=== PATIENT | female | born 1960 | race Caucasian/White ===

== ENCOUNTER 2017-07-13 06:32 | Observation (INO) | payer OTHER ==
[2017-07-13] MEDS ORDERED: ATROPINE 1 MG/10 ML SYRINGE IV (07:00)
[2017-07-13] MEDS ORDERED: MEPERIDINE 25 MG INJ IV (07:00)
[2017-07-13] MEDS ORDERED: hydrALAzine 20 MG INJ IV (07:00)
[2017-07-13] MEDS ORDERED: HYDROmorphONE (0.2 MG/ML) 10ML SYG IV ×3 (07:00)
[2017-07-13] MEDS ORDERED: FENTAnyl 50 MCG/ML VIAL IV ×2 (07:00)
[2017-07-13] MEDS ORDERED: EPHEDrine SULFATE 50 MG/5 ML SYG IV (07:00)
[2017-07-13] MEDS ORDERED: ONDANSETRON 4 MG INJ IV ×2 (07:00→15:00)
[2017-07-13] MEDS ORDERED: OXYCODONE/ACETAMINOPHEN (5/325) TAB PO ×2 (07:00)
[2017-07-13] MEDS ORDERED: LABETALOL HCL 20MG INJ IV (07:00)
[2017-07-13] MEDS ORDERED: DIPHENHYDRAMINE 50 MG INJ IV (07:00)
[2017-07-13] MEDS ORDERED: MIDAZOLAM 1 MG/ML 2 ML INJ IV (07:00)
[2017-07-13] MEDS ORDERED: morphine (1 MG/ML) 10ML SYRINGE IV ×3 (07:00)
[2017-07-13] MEDS: SOD CHLORIDE 0.9% 1,000 ML IV (10:00)
[2017-07-13] MEDS: CEFAZOLIN 2 GM/50 ML (PMX) 50 ML IVPB (10:00)
[2017-07-13 10:07] LABS: ADD MAN DIFF? NO
[2017-07-13 10:11] LABS: WHITE BLOOD COUNT 7.4 10^3/ul (4.8-10.8)
[2017-07-13 10:11] LABS: BASOPHIL # 0.1 10^3/ul (0.0-0.1); BASOPHILS % 1.2 % (0.0-2.0); EOSINOPHILS # 0.3 10^3/ul (0.0-0.5); EOSINOPHILS % 4.6 % (0.0-7.0); HEMATOCRIT 45.7 % (37.0-47.0); HEMOGLOBIN 15.5 g/dl (12.0-16.0); LYMPHOCYTES # 2.5 10^3/ul (0.8-2.9); LYMPHOCYTES % 33.7 % (15.0-51.0); MEAN CORPUSCULAR HEMOGLOBIN 30.6 pg (29.0-33.0); MEAN CORPUSCULAR HGB CONC 33.9 g/dl (32.0-37.0); MEAN CORPUSCULAR VOLUME 90.3 fl (82.0-101.0); MEAN PLATELET VOLUME 11.8 fl (7.4-10.4); MONOCYTE # 0.7 10^3/ul (0.3-0.9); MONOCYTES % 9.1 % (0.0-11.0); NEUTROPHIL # 3.8 10^3/ul (1.6-7.5); NEUTROPHILS % 51.3 % (39.0-77.0); PLATELET COUNT 201 10^3/UL (140-415); RED BLOOD COUNT 5.06 10^6/ul (4.20-5.40); RED CELL DISTRIBUTION WIDTH 13.2 % (11.5-14.5)
[2017-07-13 10:30] LABS: ALANINE AMINOTRANSFERASE 32 IU/L (13-69); ALBUMIN 4.6 g/dl (3.3-4.9); ALBUMIN/GLOBULIN RATIO 1.39; ALKALINE PHOSPHATASE 100 IU/L (42-121); ANION GAP 17 (8-16); ASPARTATE AMINO TRANSFERASE 26 IU/L (15-46); BILIRUBIN,INDIRECT 0.9 mg/dl (0-1.1); BILIRUBIN,TOTAL 0.9 mg/dl (0.2-1.3); CARBON DIOXIDE 27 mmol/L (21-31); CHLORIDE 107 mmol/L (97-110); GLUCOSE 97 mg/dl (70-220); TOTAL PROTEIN 7.9 g/dl (6.1-8.1)
[2017-07-13 10:34] LABS: BLOOD UREA NITROGEN 16 mg/dl (7-20); CALCIUM 9.3 mg/dl (8.4-10.2); CREATININE 0.69 mg/dl (0.44-1.00); POTASSIUM 3.9 mmol/L (3.5-5.1); SODIUM 147 mmol/L (135-144)
[2017-07-13 10:53] LABS: INR 0.93; PROTIME 12.6 Sec (11.9-14.9)
[2017-07-13 10:54] LABS: PARTIAL THROMBOPLASTIN TIME 28.2 Sec (25.0-35.0)
[2017-07-13] MEDS ORDERED: PROPOFOL 20 ML (11:30)
[2017-07-13] MEDS ORDERED: NEOSTIGMINE 3 MG/3 ML SYRINGE (11:30)
[2017-07-13] MEDS ORDERED: LIDOCAINE 2% (SDV) 5 ML INJ (11:30)
[2017-07-13] MEDS ORDERED: GLYCOPYRROLATE 0.4 MG INJ (11:30)
[2017-07-13] MEDS ORDERED: ROCURONIUM 50 MG INJ (11:30)
[2017-07-13] MEDS ORDERED: FENTAnyl 50 MCG/ML VIAL (11:31)
[2017-07-13] MEDS ORDERED: MIDAZOLAM 1 MG/ML 2 ML INJ (11:31)
[2017-07-13] MEDS: ISOSULFAN BLUE 1% 5 ML INJ SC (11:40)
[2017-07-13] MEDS ORDERED: DEXAMETHASONE 4 MG/ML 1 ML INJ (12:42)
[2017-07-13] MEDS ORDERED: ONDANSETRON 4 MG INJ (12:43)
[2017-07-13] MEDS ORDERED: LABETALOL HCL 20MG INJ (14:38)
[2017-07-13] MEDS ORDERED: morphine 2 MG INJ IV (15:00)
[2017-07-13] MEDS: ACETAMINOPHEN 1000MG/100ML IV 100 ML IVPB ×2 (15:40→21:31)
[2017-07-13] MEDS: D5W-0.45 NACL + KCL 20 MEQ 1,000 ML IV (17:03)
[2017-07-14] MEDS: D5W-0.45 NACL + KCL 20 MEQ 1,000 ML IV ×2 (00:55→09:33)
[2017-07-14] MEDS: ACETAMINOPHEN 1000MG/100ML IV 100 ML IVPB (04:20)
== END 2017-07-14 15:05 | disposition home or self-care (01) ==
LOC: SDS 06:32 → MS2 14:39
DX: C50.912 Malignant neoplasm of unspecified site of left female breast (principal)
CPT/HCPCS: 19301; 71045; 80053; 85025; 85610; 85730; 88307; 93005

== ENCOUNTER 2017-09-29 07:01 | Day surgery (SDC) | payer OTHER ==
[~2017-09-29 07:01] MED LIST: LIDOCAINE 2% (SDV) 5 ML INJ
[2017-09-29] MEDS ORDERED: LABETALOL HCL 20MG INJ IV (08:00)
[2017-09-29] MEDS ORDERED: morphine (1 MG/ML) 10ML SYRINGE IV ×2 (08:00)
[2017-09-29] MEDS ORDERED: HYDROmorphONE 1 MG/5 ML IV SYRINGE IV ×3 (08:00→10:00)
[2017-09-29] MEDS ORDERED: MEPERIDINE 25 MG INJ IV ×2 (08:00→10:00)
[2017-09-29] MEDS ORDERED: FENTAnyl 50 MCG/ML VIAL IV ×4 (08:00→10:00)
[2017-09-29] MEDS ORDERED: OXYCODONE/ACETAMINOPHEN (5/325) TAB PO ×2 (08:00)
[2017-09-29] MEDS ORDERED: DIPHENHYDRAMINE 50 MG INJ IV ×2 (08:00→10:00)
[2017-09-29] MEDS ORDERED: ONDANSETRON 4 MG INJ IV ×2 (08:00→10:00)
[2017-09-29 08:04] LABS: ADD MAN DIFF? NO
[2017-09-29 08:07] LABS: WHITE BLOOD COUNT 8.7 10^3/ul (4.8-10.8)
[2017-09-29 08:07] LABS: BASOPHIL # 0.1 10^3/ul (0.0-0.1); BASOPHILS % 1.2 % (0.0-2.0); EOSINOPHILS # 0.3 10^3/ul (0.0-0.5); EOSINOPHILS % 2.9 % (0.0-7.0); HEMATOCRIT 42.6 % (37.0-47.0); HEMOGLOBIN 14.3 g/dl (12.0-16.0); LYMPHOCYTES # 3.2 10^3/ul (0.8-2.9); LYMPHOCYTES % 36.3 % (15.0-51.0); MEAN CORPUSCULAR HEMOGLOBIN 29.2 pg (29.0-33.0); MEAN CORPUSCULAR HGB CONC 33.6 g/dl (32.0-37.0); MEAN CORPUSCULAR VOLUME 86.9 fl (82.0-101.0); MEAN PLATELET VOLUME 10.3 fl (7.4-10.4); NEUTROPHIL # 4.2 10^3/ul (1.6-7.5); NEUTROPHILS % 48.3 % (39.0-77.0); PLATELET COUNT 342 10^3/UL (140-415); RED CELL DISTRIBUTION WIDTH 12.9 % (11.5-14.5)
[2017-09-29 08:26] LABS: INR 0.99; PROTIME 13.2 Sec (11.9-14.9)
[2017-09-29 08:27] LABS: PARTIAL THROMBOPLASTIN TIME 28.4 Sec (25.0-35.0)
[2017-09-29 08:28] LABS: ALANINE AMINOTRANSFERASE 35 IU/L (13-69); ALBUMIN 4.4 g/dl (3.3-4.9); ALBUMIN/GLOBULIN RATIO 1.41; ALKALINE PHOSPHATASE 92 IU/L (42-121); ANION GAP 12 (8-16); ASPARTATE AMINO TRANSFERASE 29 IU/L (15-46); BILIRUBIN,INDIRECT 0.5 mg/dl (0-1.1); BILIRUBIN,TOTAL 0.5 mg/dl (0.2-1.3); BLOOD UREA NITROGEN 12 mg/dl (7-20); CALCIUM 9.6 mg/dl (8.4-10.2); CARBON DIOXIDE 27 mmol/L (21-31); CHLORIDE 108 mmol/L (97-110); CREATININE 0.75 mg/dl (0.44-1.00); GLUCOSE 98 mg/dl (70-220); POTASSIUM 3.9 mmol/L (3.5-5.1); SODIUM 143 mmol/L (135-144); TOTAL PROTEIN 7.5 g/dl (6.1-8.1)
[2017-09-29] MEDS ORDERED: CEFAZOLIN 2 GM/50 ML (PMX) 50 ML IVPB (09:00)
[2017-09-29] MEDS ORDERED: SOD CHLORIDE 0.9% 1,000 ML IV (09:00)
[2017-09-29] MEDS ORDERED: ROCURONIUM 50 MG INJ (09:55)
[2017-09-29] MEDS ORDERED: PROPOFOL 20 ML (09:55)
[2017-09-29] MEDS ORDERED: SUCCINYLCHOLINE CHLORIDE 100 MG/5 ML SYG IV (09:55)
[2017-09-29] MEDS ORDERED: FENTAnyl 50 MCG/ML VIAL (09:55)
[2017-09-29] MEDS ORDERED: CEFAZOLIN 1 GM INJ (09:55)
[2017-09-29] MEDS ORDERED: SUGAMMADEX SODIUM 200 MG/2 ML VIAL IV (09:55)
[2017-09-29] MEDS ORDERED: METOCLOPRAMIDE 10 MG INJ IV (10:00)
[2017-09-29] MEDS ORDERED: ALBUTEROL 0.083% (NEB) 2.5 MG/3 ML AMP HHN (10:00)
[2017-09-29] MEDS: HYDROmorphONE 1 MG/5 ML IV SYRINGE IV (10:51)
== END 2017-09-29 12:46 | disposition home or self-care (01) ==
LOC: SDS 07:01
DX: C50.912 Malignant neoplasm of unspecified site of left female breast (principal); N64.89 Other specified disorders of breast
CPT/HCPCS: 10140; 80053; 85025; 85610; 85730

== ENCOUNTER 2017-12-27 09:13 | Emergency (ER) | payer OTHER | END 2017-12-27 11:02 | disposition home or self-care (01) | LOC: FTE 09:13 | DX: H00.12 Chalazion right lower eyelid (principal); Z85.3 Personal history of malignant neoplasm of breast | CPT/HCPCS: 99283; Z7502 ==